=== PATIENT | male | born 1945 | race Caucasian/White ===

== ENCOUNTER 2018-07-20 07:12 | Day surgery (SDC) | payer MEDICARE ==
[2018-07-19 09:33] VITALS: BMI 32.3
[2018-07-20 07:40] LABS: Hemoglobin 14.9 g/dL (14.0-18.0)
[2018-07-20] MEDS ORDERED: Oxymetazoline HCl 0.05% ( 15 ML ) ONE ×2 (07:47→08:26)
[2018-07-20 08:00] LABS: Anion Gap 10 mmol/L (10-20); BUN (Urea Nitrogen) 22 mg/dL (8.4-25.7); Calc. Creatinine Clearance 81 mL/min (70-130); Calcium 9.7 mg/dL (7.8-10.44); Carbon Dioxide 24 mmol/L (23-31); Chloride 110 mmol/L (98-107); Estimated GFR-MDRD 70; Glucose 107 mg/dL (83-110); Sodium 140 mmol/L (136-145)
[2018-07-20] MEDS ORDERED: Lidocaine 1% w/Epinephrine 1:100K 30 ML VIAL ONE (08:26)
[2018-07-20] MEDS ORDERED: Bacitracin Zinc Ointment 30 gm TUBE ONE ×2 (08:26→08:27)
[2018-07-20] MEDS ORDERED: Fentanyl 100 MCG/2 ML VIAL ONE (08:39)
[2018-07-20] MEDS ORDERED: PROPOFOL 200 MG/20 ML VIAL ONE (11:16)
[2018-07-20] MEDS ORDERED: ePHEDrine/0.9% NaCl/PF SYRINGE 50 mg/10 ml ONE (11:16)
[2018-07-20] MEDS ORDERED: Succinylcholine Chloride 20 MG/ML 10 ml SYRINGE FS ONE (11:16)
[2018-07-20] MEDS ORDERED: Dexamethasone 20 MG/5 ML VIAL ONE (11:16)
[2018-07-20] MEDS ORDERED: Lidocaine 1% PF 5 ML VIAL ONE (11:16)
[2018-07-20] MEDS ORDERED: Ondansetron PF 4 MG/2 ML Vial ONE (11:16)
[2018-07-20] MEDS ORDERED: PHENYLEPHRINE-NS 100 MCG/ML 10 ML SYRINGE ONE (11:16)
[2018-07-20] MEDS ORDERED: HYDROcodone/Acetaminophen 5/325 mg Tablet ONE (11:54)
--- NOTE | 2018-07-20 15:49 | EKG ---
Test Reason : PREOP Blood Pressure : / mmHG Vent. Rate : 048 BPM Atrial Rate : 048 BPM P-R Int : 174 ms QRS Dur : 166 ms QT Int : 494 ms P-R-T Axes : 035 -41 -11 degrees QTc Int : 441 ms Marked sinus bradycardia Left axis deviation Right bundle branch block T wave abnormality, consider inferior ischemia Abnormal ECG Confirmed by RODERICK DRISCOLL ([id number]) on 07/20/2018 3:49:42 PM Referred By: CARLIE Confirmed By:RODERICK DRISCOLL
--- NOTE | 2018-07-21 14:43 | OP ---
DATE OF PROCEDURE: 07/20/2018 PREOPERATIVE DIAGNOSES: 1. Chronic rhinosinusitis. 2. Nasal septal deviation. 3. Bilateral inferior turbinate hypertrophy. 4. Nasal obstruction. POSTOPERATIVE DIAGNOSES: 1. Chronic rhinosinusitis. 2. Nasal septal deviation. 3. Bilateral inferior turbinate hypertrophy. 4. Nasal obstruction. PROCEDURES: 1. Bilateral endoscopic sinus surgery, total ethmoidectomies. 2. Bilateral endoscopic sinus surgery, maxillary antrostomies. 3. Bilateral endoscopic sinus surgery, frontal sinusotomies. 4. Nasal septoplasty. 5. Bilateral inferior turbinate submucosal resection. SURGEON: Dr. Gerry Dennison ESTIMATED BLOOD LOSS: 20 mL. COMPLICATIONS: None. ANESTHESIA: GETA. PROCEDURE IN DETAIL: Patient was taken to the operating room and placed supine on the table. General endotracheal anesthesia was obtained by the Anesthesia staff. Tube was secured in the left lower lip. Patient was then placed in the beach chair position, and Afrin pledgets were placed in the nasal cavity. Injections of 1% lidocaine with 1:100,000 epinephrine were made into the nasal septum as well as the inferior turbinates. [facility] and [facility] in standard surgical fashion for nasal surgery. Following this, the Afrin pledgets were removed. A Ki llian incision was made on the left nasal septum. Submucoperichondrial dissection was performed. The deviated portions of the septum included portions of the cartilage and the bony septum. These isolate d areas were removed using three cutting rongeurs. There was noted to be a large dorsal and caudal stru t, left intact for support of the nose. The mucoperichondrial flaps were then reapproximated using a 4-0 gut stitch. Any straight pieces of cartilage were crushed prior to this and placed between the mucoperichondrial flaps. Following this, the inferior turbinates were then punctured with a submucosa l coblation wand, and submucosal coblations were performed of multiple areas of the inferior portion of the anterior inferior turbinate. Please note that the submucosal microdebrider was used to submucosally resect the anterior and inferi or portions of the inferior turbinates bilaterally. Following this, the 0 degree scope was advanced in the middle meatus. The middle turbinates were gently medialized using the Vanleer elevator schuyler michelle. The uncinate process was identified bilaterally and anteriorly fractured using a ball-ended pro be. Following this, the uncinate process was removed using the straight microdebrider and the upbiti ng Blakesley forceps. Following this, the natural maxillary sinus ostia was identified bilaterally b y using a ball-ended probe. Following this, the natural ostia was then gently widened using the stra ight microdebrider and straight Blakesley forceps bilaterally. Following this, the ethmoidal bulla w as identified and was punctured on its medial and inferior aspect with the microdebrider was removed. The grand lamella was then identified and was punctured into the posterior ethmoidal cells. Workin g from posterior to anterior, the ethmoidal cells were opened in a mucosal-sparing technique using th e straight microdebrider, curved microdebrider and the upbiting Blakesley forceps. Following this, a 45 degree endoscope along with the 40-degree microdebrider blade was used to further open the fronta l recess cells exposing the frontal sinus ostia bilaterally. Following this, the frontal sinus ostia was widened using the curved microdebrider bilaterally. Following this, the nasal cavity was irriga jessenia. MeroPacks were placed in the middle meatus. Trujillo splints were placed and secured. The patien t tolerated the procedure well.
== END 2018-07-20 12:40 | disposition home or self-care (01) ==
LOC: SDC 07:12
PROVIDERS: ATTEND Otolaryngology Plastic Surgery within the Head & Neck
PROC: 09BV8ZZ Excision of Left Ethmoid Sinus, Via Natural or Artificial Opening Endoscopic (ICD-10-PCS; principal; 2018-07-20)
PROC: 09BU8ZZ Excision of Right Ethmoid Sinus, Via Natural or Artificial Opening Endoscopic (ICD-10-PCS; 2018-07-20)
PROC: 09BM4ZZ Excision of Nasal Septum, Percutaneous Endoscopic Approach (ICD-10-PCS; 2018-07-20)
DX: J32.8 Other chronic sinusitis (principal); J34.3 Hypertrophy of nasal turbinates; J34.2 Deviated nasal septum; Z79.899 Other long term (current) drug therapy
CPT/HCPCS: 36415; 80048; 85014; 85018; 93005; 93010; J1100; J2001; J2405; J2704; J3010